=== PATIENT | male | born 1995 | race Caucasian/White ===

== ENCOUNTER 2023-12-08 11:12 | Emergency (ER) | payer BC, SELFPAY ==
[2023-12-08 11:22] VITALS: BP 143/84
--- NOTE | 2023-12-08 12:14 | ED.GENMED ---
History of Present Illness
General
Chief Complaint: Fever
Time Seen by Provider: 12/08/23 12:14
Travel History
Have you had any contact with someone who has COVID-19?: No
Do you have any symptoms of coronavirus? Fever > 100 degrees, chills, cough, shortness of breath, sore throat, loss of taste or smell, muscle aches, or headache?: No
History of Present Illness
History of Present Illness:
HPI: Patient had laparoscopic appendectomy while visiting in [place] 6 days ago. He states the course of this stay was uneventful. He was given IV antibiotic in the hospital but was not discharged on any antibiotics. More recently he has been
having diarrhea. He has some mild abdominal pain that he feels is expected after the surgery but no increase in pain. He felt chills overnight and thought he had a fever but his temperature was checked and was normal at home. Currently he feels
improved compared to how he felt earlier in the morning.
EXAM:
GENERAL: Well appearing in no distress
HEENT: Moist oral mucosa
CARDIOVASCULAR: No murmurs, normal heart rate and rhythm, No chest wall tenderness
PULMONARY: No respiratory distress, breath sounds are clear and equal
ABDOMEN: Soft with no peritoneal signs, minimal diffuse tenderness, laparoscopic surgical wounds noted with no evidence of infection
NEUROLOGIC: Excellent strength all extremities, no coordination deficits
PSYCHIATRIC: Appropriate mental status, normal insight and judgement
EXTREMITIES: Nontender, no edema, moves all extremities equally
SKIN: No rash, no lesions
ED COURSE:
12:25 PM: I initially evaluated patient
NUMBER AND COMPLEXITY OF PROBLEMS ADDRESSED AT THE ENCOUNTER
� Chronic conditions affecting care: Patient is healthy but recently had appendectomy
� Acute Exacerbation and/or Progression of Chronic Illness: This is an acute problem
� Differential Diagnosis includes: C. difficile, viral illness, foodborne illness
AMOUNT AND/OR COMPLEXITY OF DATA TO BE REVIEWED AND ANALYZED
� I performed an independent evaluation of and my interpretation is:
EKG:
CT:
X-rays:
Laboratory Studies: White count 19,000, C. difficile positive, chemistries and lactic acid are normal
Other:
� Review of other/old records: The patient was here about 2 weeks ago with chest discomfort
� Clinical information was obtained by an independent historian:
� Prescriptions/Medications Considered but not given:
� Further testing considered but not performed: Considered CT imaging however the patient reports no significant abdominal pain and overall is feeling improved. C. difficile test is positive.
RISK OF COMPLICATIONS AND/OR MORBIDITY OR MORTALITY OF PATIENT MANAGEMENT
� Social determinants of health affecting care: Lives at home with
� Discussion with other providers:
� Escalation of care including admission/observation vs risk of discharge considered: The patient was given IV fluids. His white count is elevated. He has only minimal tenderness on exam is very well-appearing. C. difficile is
positive. Placed on vancomycin.
Phy Exam
Physical Exam
Physical Exam:
See HPI
Course
Orders/Labs/Results
Orders:
Orders
12/08/23 12:23
0.9% Sodium Chloride 1000 ml [Nss] 1,000 ml IV BOLUS
12/08/23 12:51
Complete Blood Count/With Diff Urgent
Comprehensive Metabolic Panel Urgent
Lactic Acid Q4H
Comment: CANCEL 2nd LACTIC ACID IF 1st LACTIC ACID IS LESS THAN 2
Blood Culture Q30M
ITZEL Source: Blood/Venous
Specimen Description:
C difficile Antigen & Toxins Urgent
ITZEL Source: Feces/Stool
Specimen Description:
Date Specimen was Collected: 12/08/23
Time Specimen was Collected: 12:44
Stool Culture Urgent
TIZEL Source: Feces/Stool
Specimen Description:
Date Specimen was Collected: 12/08/23
Time Specimen was Collected: 12:44
12/08/23 13:00
Blood Culture Q30M
ITZEL Source: Blood/Venous
Specimen Description:
12/08/23 13:36
Ondansetron Injectable [Zofran] 4 mg IV NOW STA
12/08/23 14:10
Vancomycin HCl [Firvanq] 125 mg PO NOW STA
12/08/23 16:30
Lactic Acid Q4H
Comment: CANCEL 2nd LACTIC ACID IF 1st LACTIC ACID IS LESS THAN 2
Abnormal Lab Results
12/08/23
12:51
WBC 19.0 H 10^3/uL
(4.8-10.8)
MCH 31.1 H pg
(27.0-31.0)
MPV 10.9 H fL
(7.4-10.4)
Abs Immat Gran (auto) 0.1 H 10^3/uL
(0-0.05)
Absolute Neuts (auto) 16.2 H 10^3/uL
(1.4-6.5)
Absolute Monos (auto) 1.2 H 10^3/uL
(0.1-0.6)
Immature Gran % 0.6 H %
(0-0.5)
Neutrophils % 85.5 H %
(42.2-75.2)
Lymphocytes % 6.8 L %
(20.5-51.1)
Glucose 104 H mg/dl
(70-99)
12/08/23 12:51
12/08/23 12:51
Vital Signs
Initial and Last Documented VS:
Initial Vital Signs
Temp Pulse Resp BP Pulse Ox
98.1 F 105 18 143/84 98
12/08/23 11:22 12/08/23 11:22 12/08/23 11:22 12/08/23 11:22 12/08/23 11:22
Last Documented Vital Signs
Temp Pulse Resp BP Pulse Ox
98.1 F 105 18 143/84 98
12/08/23 11:22 12/08/23 11:22 12/08/23 11:22 12/08/23 11:22 12/08/23 11:22
*Critical Care Note
Total Time (30-74mins, 75-104mins- exclusive of procedures): Not Applicable
ED Attending Note
-
Portions of this chart may have been created with voice recognition software.� Occasional wrong word or��sound alike� substitutions may have occurred due to the inherent limitations of voice recognition software.
Discharge Plan
Departure
Patient Disposition: Home (Routine Discharge)
Date of Disposition: 12/08/23
Time of Disposition: 14:12
Patient with high blood pressure during this ER visit?: Yes
Discharge Problem:
Clostridium difficile diarrhea
Instructions: Clostridioides difficile (DC)
Prescriptions:
New
vancomycin 125 mg capsule
125 mg PO QID Qty: 40 0RF
Referrals:
NONE,* [Family Provider] -
Activity Restrictions/Additional Instructions:
The test for 'C. diff' (Clostridium difficile) is positive. The treatment for this is an antibiotic called vancomycin. I have sent a prescription for a 10-day course to your pharmacy. Return here if worse. Your white blood cell count is high
which is very common with C. diff.
Interventions
Interventions:
*Risk Screen - Suicide Last Done: 12/08/23 11:22
*Neglect/Abuse Screening Last Done: 12/08/23 11:22
*ED COVID-19 Vaccine History Last Done: 12/08/23 11:22
[2023-12-08] MEDS: NSS 1000 IV (12:57)
[2023-12-08 13:17] LABS: % Basophils 0.3 % (0-2); % Eosinophils 0.4 % (0-6); % Immature Granulocytes 0.6 % (0-0.5); % Lymphocytes 6.8 % (20.5-51.1); % Monocytes 6.4 % (1.7-9.3); % Neutrophils 85.5 % (42.2-75.2); Absolute Basophils 0.1 10^3/uL (0-0.2); Absolute Eosinophils 0.1 10^3/uL (0-0.7); Absolute Immature Granulocytes 0.1 10^3/uL (0-0.05); Absolute Lymphocytes 1.3 10^3/uL (1.2-3.4); Absolute Monocytes 1.2 10^3/uL (0.1-0.6); Absolute Neutrophils 16.2 10^3/uL (1.4-6.5); Hematocrit 42.1 % (39.0-52.0); Hemoglobin 15.1 g/dL (13.0-18.0); Mean Corp Hgb Conc. 35.9 g/dL (33.0-37.0); Mean Corpuscular Hgb 31.1 pg (27.0-31.0); Mean Corpuscular Volume 86.6 fL (80.0-94.0); Mean Platelet Volume 10.9 fL (7.4-10.4); Nucleated Red Blood Cells % 0 % (-); Platelet Count 272 10^3/uL (130-400); Red Blood Cell Count 4.86 10^6/uL (4.70-6.10); Red Cell Dist. Width 11.8 % (11.5-14.5)
[2023-12-08 13:26] LABS: Lactic Acid 1.2 mmol/L (0.7-2.0)
[2023-12-08 13:27] LABS: ALT (SGPT) 38 U/L (0-50); AST (SGOT) 31 U/L (17-59); Alkaline Phosphatase 63 U/L (38-126); Blood Urea Nitrogen 18 mg/dl (9-20); Calcium 9.6 mg/dl (8.4-10.2); Carbon Dioxide 26 mmol/L (22-30); Chloride 106 mmol/L (98-107); Glucose 104 mg/dl (70-99); Potassium 4.4 mmol/L (3.5-5.1); Sodium 139 mmol/L (135-145); eGFR > 60.00
[2023-12-08 14:30] VITALS: BP 124/74
[2023-12-08 14:46] VITALS: BMI 30.1
[2023-12-08] MEDS: FIRVANQ 125 MG PO (15:04)
== END 2023-12-08 15:10 | disposition home or self-care (01) ==
LOC: EMR 11:12
PROVIDERS: EMERGENCY PHYSICIAN Emergency Medicine
DX: A04.72 Enterocolitis due to Clostridium difficile, not specified as recurrent (principal)
CPT/HCPCS: 99284; 96360; 80053; 83605; 85025; 87040; 87045; 87046; 87324; 87427; 87449